=== PATIENT | female | born 1990 | race Caucasian/White ===

== ENCOUNTER 2017-12-03 03:36 | Inpatient (IN) | payer MEDICAID, OTHER ==
[~2017-12-03] VITALS: Ht 162.6 cm; Wt 97.7 kg
[~2017-12-03 03:36] MED LIST: ARIP15TA2 PO; BACI120O TP; FERR-89 PO
[2017-12-03] MEDS ORDERED: OXCA300T PO (03:41)
[2017-12-03] MEDS ORDERED: OLAN7.5T2 PO (03:41)
[2017-12-03] MEDS ORDERED: DIPH25 PO (03:41)
[2017-12-03] MEDS ORDERED: ZOLPIDEM TARTRATE 10 MG TABLET PO PRN (04:00)
[2017-12-03] MEDS ORDERED: HALOPERIDOL 5 MG TABLET PO PRN (04:00)
[2017-12-03 04:39] LABS: BASOPHILS % (AUTO) 0.4 % (0.0-2.0); EOSINOPHILS % (AUTO) 0.4 % (1.0-6.0); HEMATOCRIT 40.5 % (36-46); HEMOGLOBIN 13.8 g/dL (12.0-16.0); LYMPHOCYTES # (AUTO) 2.2 K/uL (1.0-4.8); LYMPHOCYTES % (AUTO) 26.6 % (22.0-44.0); MEAN CORPUSCULAR HEMOGLOBIN 26.7 pg (26.0-34.0); MEAN CORPUSCULAR VOLUME 78 fL (80-100); MONOCYTES # (AUTO) 0.7 K/uL (0.1-1.0); MONOCYTES % (AUTO) 8.2 % (2.0-9.0); NEUTROPHILS # (AUTO) 5.4 K/uL (1.8-7.7); NEUTROPHILS % (AUTO) 64.4 % (40.0-70.0); PLATELET COUNT (AUTO) 238 K/uL (150-450); RED BLOOD CELL COUNT(AUTO) 5.17 MIL/uL (4.00-5.20); RED CELL DISTRIBUTION WIDTH 13.8 % (11.5-14.5)
[2017-12-03 04:48] LABS: ANION GAP 10 mmol/L (8-16); CALCIUM, TOTAL 9.2 mg/dL (8.8-10.5); CARBON DIOXIDE 28 mmol/L (22-29); CHLORIDE 102 mmol/L (98-107); CREATININE 0.66 mg/dL (0.60-1.30); GLOMERULAR FILTR. RATE CALC > 60 mL/min (>60); GLUCOSE,RANDOM 125 mg/dL (70-110); POTASSIUM 3.2 mmol/L (3.5-5.1); SODIUM SERUM 140 mmol/L (136-145); UREA NITROGEN, BLOOD 12 mg/dL (7-18)
[2017-12-03 04:54] LABS: ALANINE AMINOTRANSFERASE 68 U/L (12-78); ALBUMIN 4.1 g/dL (3.4-5.0); ALKALINE PHOSPHATASE 77 U/L (46-116); ASPARTATE AMINOTRANSFERASE 59 U/L (15-37); BILIRUBIN,TOTAL 0.6 mg/dL (0.1-1.0); CHOL/HDL RATIO 4.9 (3.9-5.7); CHOLESTEROL 143 mg/dL (131-200); HDL CHOLESTEROL 29 mg/dL (40-60); LDL CHOL (CALC.) 90 mg/dL (0-130); TOTAL PROTEIN, SERUM 7.7 g/dL (6.4-8.2); TRIGLYCERIDES 118 mg/dL (15-150)
[2017-12-03] MEDS ORDERED: POTASSIUM CHLORIDE 10% 40 MEQ/30 ML LIQUID UDCUP PO ONE (05:30)
[2017-12-03] MEDS: LORazepam 2 MG TABLET PO PRN (09:17)
[2017-12-03] MEDS ORDERED: DiphenhydrAMINE HCL 50 MG/ML VIAL ONE (11:04)
[2017-12-03] MEDS ORDERED: LORazepam 2 MG/ML VIAL ONE (11:04)
[2017-12-03] MEDS ORDERED: HALOPERIDOL LACTATE 5 MG/ML VIAL ONE (11:05)
[2017-12-03] MEDS ORDERED: DiphenhydrAMINE HCL 50 MG/ML VIAL IM ONE (11:15)
[2017-12-03] MEDS ORDERED: LORazepam 2 MG/ML VIAL IM ONE (11:15)
[2017-12-03] MEDS ORDERED: HALOPERIDOL LACTATE 5 MG/ML VIAL IM ONE (11:15)
[2017-12-03 16:09] VITALS: BP 122/73
[2017-12-03 16:12] VITALS: BP 122/73
[2017-12-03] MEDS ORDERED: INFLUENZA VIRUS VACCINE QVS 2017-18 (3YR+)/PF 60 MCG/0.5 ML SYRINGE IM ONE (16:45)
[2017-12-04 08:23] LABS: ALANINE AMINOTRANSFERASE 85 U/L (12-78); ALBUMIN 3.3 g/dL (3.4-5.0); ALKALINE PHOSPHATASE 63 U/L (46-116); ANION GAP 9 mmol/L (8-16); ASPARTATE AMINOTRANSFERASE 92 U/L (15-37); BILIRUBIN,TOTAL 0.7 mg/dL (0.1-1.0); CALCIUM, TOTAL 8.4 mg/dL (8.8-10.5); CARBON DIOXIDE 26 mmol/L (22-29); CHLORIDE 106 mmol/L (98-107); CREATININE 0.54 mg/dL (0.60-1.30); GLOMERULAR FILTR. RATE CALC > 60 mL/min (>60); GLUCOSE,RANDOM 93 mg/dL (70-110); POTASSIUM 3.5 mmol/L (3.5-5.1); SODIUM SERUM 141 mmol/L (136-145); TOTAL PROTEIN, SERUM 6.6 g/dL (6.4-8.2); UREA NITROGEN, BLOOD 16 mg/dL (7-18)
[2017-12-04] MEDS ORDERED: OLANZapine 7.5 MG TABLET PO SCH ×2 (09:00)
[2017-12-04] MEDS ORDERED: IBUPROFEN 600 MG TABLET PO PRN (09:30)
[2017-12-04] MEDS ORDERED: MAGNESIUM HYDROXIDE SUSPENSION 30 ML UDCUP PO PRN (09:30)
[2017-12-04] MEDS ORDERED: ALBUTEROL SULFATE HFA 90 MCG/PUFF 8 GM INHALER IH PRN (09:30)
[2017-12-04] MEDS ORDERED: LOPERAMIDE HCL 2 MG CAPSULE PO PRN (09:30)
[2017-12-04] MEDS ORDERED: ACETAMINOPHEN 325 MG TABLET PO PRN (09:30)
[2017-12-04] MEDS ORDERED: PETROLATUM,WHITE 71 GM JELLY TP PRN (09:30)
[2017-12-04] MEDS ORDERED: ONDANSETRON HCL 4 MG TABLET PO PRN (09:30)
[2017-12-04] MEDS ORDERED: BENZOCAINE/MENTHOL LOZENGE MM PRN (09:30)
[2017-12-04] MEDS ORDERED: BACITRACIN 28.4 GM OINTMENT TP PRN (09:30)
[2017-12-04] MEDS ORDERED: CloNIDine HCL 0.1 MG TABLET PO PRN (09:30)
[2017-12-04] MEDS ORDERED: MAG HYDROX/AL HYDROX/SIMETH ES 30 ML SUSPENSION UDCUP PO PRN (09:30)
[2017-12-04] MEDS: OXcarbazepine 300 MG TABLET PO SCH (10:09)
[2017-12-04] MEDS ORDERED: DOCUSATE SODIUM 100 MG CAPSULE PO PRN (10:30)
[2017-12-04] MEDS ORDERED: DiphenhydrAMINE HCL 25 MG CAPSULE PO PRN (10:30)
[2017-12-04] MEDS: GABAPENTIN 300 MG CAPSULE PO SCH (13:45)
[2017-12-04] MEDS ORDERED: NICOTINE POLACRILEX 2 MG LOZENGE PO PRN (14:30)
[2017-12-04 17:55] VITALS: BP 121/66
[2017-12-04] MEDS: LORazepam 2 MG TABLET PO PRN (21:20)
[2017-12-05 06:40] VITALS: BP 151/89
[2017-12-05 08:07] LABS: THYROID STIMULATING HORMONE 0.24 uIU/mL (0.36-3.74)
[2017-12-05] MEDS: OXcarbazepine 300 MG TABLET PO SCH (09:16)
[2017-12-05] MEDS: GABAPENTIN 300 MG CAPSULE PO SCH (09:17)
[2017-12-05] MEDS ORDERED: GABA-531 PO (10:33)
== END 2017-12-05 13:20 | disposition home or self-care (01) | DRG 750 ==
LOC: EMS 03:37 → B3A 14:30
DX: F25.0 Schizoaffective disorder, bipolar type (principal); G40.909 Epilepsy, unspecified, not intractable, without status epilepticus; E03.9 Hypothyroidism, unspecified; E66.9 Obesity, unspecified; E87.6 Hypokalemia; F17.200 Nicotine dependence, unspecified, uncomplicated; F41.9 Anxiety disorder, unspecified; K57.90 Diverticulosis of intestine, part unspecified, without perforation or abscess without bleeding; R74.0 Nonspecific elevation of levels of transaminase and lactic acid dehydrogenase [LDH]; Z68.37 Body mass index [BMI] 37.0-37.9, adult; Z71.6 Tobacco abuse counseling; Z79.899 Other long term (current) drug therapy; Z98.891 History of uterine scar from previous surgery
CPT/HCPCS: 80074; 82306; 84439; 84443; 90471; 96372; 99285; G0480; J1200; J1630; J2060

== ENCOUNTER 2020-05-01 23:55 | Emergency (ER) | payer MEDICAID, OTHER ==
[~2020-05-01 23:55] MED LIST changes: -ARIP15TA2 PO; -BACI120O TP; -FERR-89 PO; +GABA-1181 PO; +OLAN7.5T2 PO; +OXCA300T57 PO
== END 2020-05-02 01:00 | disposition left against medical advice (07) ==
LOC: EMS 23:55
DX: Z02.89 Encounter for other administrative examinations (principal); Z53.21 Procedure and treatment not carried out due to patient leaving prior to being seen by health care provider